=== PATIENT | female | born 1955 ===

== ENCOUNTER 2016-09-14 15:09 | Outpatient (CLI) | payer OTHER ==
--- NOTE | 2016-09-14 16:23 | Cat Scan Report ---
CT ABDOMEN AND PELVIS WITH CONTRAST: 09/14/16 15:09:00 CLINICAL: Left lower quadrant abdominal pain. COMPARISON: None. TECHNIQUE: Volumetric acquisition and 1.25 millimeter scan reconstructions after the uneventful intravenous injection of 100 cc Omnipaque 300. Consent was obtained prior to the administration of contrast. Oral contrast was not given. FINDINGS: Abdomen: Clear lung bases.Normal liver and bile ducts status post cholecystectomy. The CBD is dilated and measures 1 cm but tapers to the ampulla. Normal stomach, duodenum, pancreas and spleen. Normal adrenal glands and kidneys. The renal collecting systems and ureters are nondilated. No urinary calculus, mass or cysts. Normal aorta and inferior vena cava. Normal small bowel.Normal ascending, transverse and descending colon. An appendix is not identified. No mass, lymphadenopathy or ascites.No pneumoperitoneum. Pelvis: Normal urinary bladder.Absence of the uterus a normal vaginal cuff. Ovaries are not identified. Normal rectum and sigmoid colon.No adnexal mass or free fluid.. Bone windows demonstrate degenerative disc disease with vacuum disc phenomenon at L5-S1. No suspicious bone lesions. IMPRESSION:Negative abdomen and pelvis status post cholecystectomy and hysterectomy. No explanation for abdominal pain.
== END 2016-09-14 15:10 | disposition home or self-care (01) ==
LOC: SPVIMAG 15:09
PROVIDERS: ATTEND Internal Medicine
DX: M51.37 Other intervertebral disc degeneration, lumbosacral region (principal); Z90.49 Acquired absence of other specified parts of digestive tract; Z90.710 Acquired absence of both cervix and uterus
CPT/HCPCS: 74177; 82962; Q9967